=== PATIENT | male | born 1970 ===

== ENCOUNTER → 2017-03-02 | Day surgery (SDC) | payer OTHER ==
[~2017-03-02] MED LIST: BUPIVACAINE/EPINEPHRINE 0.25% 50 ML VIAL ONE; KETOROLAC TROMETHAMINE 30 MG/ML (IVP) VIAL IV PUSH ONE; LACTATED RINGER'S 1000 ML INJ 1,000 ML ONE; MEPERIDINE HCL 25 MG/ML VIAL ONE; MIDAZOLAM HCL 2 MG/2 ML VIAL ONE; ONDANSETRON HCL 4 MG/2 ML VIAL IV PUSH ONE; PROPOFOL 200 MG/20 ML AMP IV ONE; ROCURONIUM INJ 50 MG/5 ML VIAL ONE; SODIUM CHLOR 0.9% 250 ML BAG IV ONE; VANCOMYCIN HCL 1000 MG VIAL ONE
--- NOTE | 2017-03-02 10:06 | TN ---
cc: DARYL CALIXTO M.D. DATE OF SURGERY: 03/02/2017 PREOPERATIVE DIAGNOSIS Bilateral inguinal hernia, umbilical hernia, incarcerated. POSTOPERATIVE DIAGNOSIS Bilateral inguinal hernia, umbilical hernia, incarcerated. PROCEDURE Laparoscopic repair bilateral inguinal hernia with mesh. Open repair incarcerated umbilical hernia. SURGEON Dr. Daryl Calixto. FUR MACHINE OPERATOR Janae Salazar, AIR [employer]SH[employer] ANESTHESIA General. INDICATIONS A pleasant 46-year-old gentleman who was seen in consultation by Dr. Tineo for evaluation of umbilical and right inguinal hernias. The patient has noted the umbilical hernia for about a year. He had a bulge and abnormal feeling in the right groin. Physical exam demonstrated bilateral inguinal hernias and incarcerated umbilical hernia. Plans were made for operative repair. INTRAOPERATIVE FINDINGS Incarcerated preperitoneal fatty tissue through a less than 2 cm umbilical hernia defect. 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 Estimated blood loss less than 5 mL. This procedure was assisted by my AIR MARSHAL. The skill set of an AIR MARSHAL was medically necessary to provide excellent visualization and efficiency in the safe completion of the operation. The rn medical surgical was at the back table, providing appropriate instrumentation while the nurse practitioner was directly assisting me through the entirety of the surgery. DESCRIPTION OF PROCEDURE IN DETAIL The patient was identified as Cyril Linares, taken to the operating room and placed in the supine position. Sequential compression devices were placed on bilateral lower extremities. Following induction of adequate general anesthesia the patient's lower abdomen was prepped and draped in the usual sterile fashion with Betadine. A time-out procedure was performed. Following completion of time-out procedure to everyone's satisfaction within the room, 0.25% Marcaine with epinephrine was placed in the infraumbilical and periumbilical positions. Infraumbilical small transverse incision was carried out with a scalpel and the umbilical skin was lifted off of incarcerated herniated preperitoneal fat. The fat was amputated and suture ligated at its base with 2-0 Vicryl suture ligature and the anterior fascia on the left side of the rectus was exposed. It was incised in vertical fashion allowing for development of preperitoneal plane with surgeon's finger directed towards the pubic symphysis. With the patient in slight Trendelenburg position the preperitoneal dissecting balloon was placed in preperitoneal space and under direct laparoscopic view the balloon was inflated to a total of 39 pumps. This allowed for identification of pubic symphysis and bilateral Derek's ligaments and inferior epigastric vessels. Balloon was desufflated, removed and the structural balloon trocar was placed in preperitoneal space, its balloon inflated with C02 insufflation until a level of 11 mmHg ensued. Two infraumbilical midline 5 mm trocars were then placed in preperitoneal space under direct laparoscopic view after incision of skin with a scalpel. Attention was turned to the right side. Derek's ligament and the inferior epigastric vessels were identified. Blunt dissection lateral and posterior to the spermatic cord was performed. A large spermatic cord lipoma made itself immediately apparent on the anterior lateral surface of the spermatic cord. It was reduced from the inguinal canal with blunt graspers into the preperitoneal space. Anteromedially adherent peritoneum was reduced into the base of the spermatic cord. In doing so a small defect was created which was closed with 0-PDS Endoloop. There was no evidence of direct or femoral hernia. A 4 x 6 inch piece of atrium ProLite mesh was cut with an anterolateral slit placed around the spermatic cord and tacked in position with the capture device. Two tacks were placed along the anterior to approximate the anterolateral slit lateral to the inferior epigastric vessels. A single tack was placed in the inferior lateral Derek's ligament. A 2 x 6 inch piece of the mesh was then placed across the anterolateral slit and held in position, placing a tack superolaterally and inferior medially. Additional tack was placed superior medially. Photographs were taken of the completed repair. Attention was turned to the right side. Similar blunt dissection ensued and almost identical findings were identified. A large spermatic cord lipoma was reduced manually with blunt graspers from the inguinal canal into the preperitoneal space. Adherent peritoneum was reduced to the base of spermatic cord, this time without creating a defect. A 4 x 6 inch piece of atrium ProLite mesh was cut and the anterolateral slit placed around the spermatic cord and tacked in position with a capture device as was done on the left. 2 x 6 inch piece was placed across the anterolateral slit and tacked, placing a tack superior lateral and inferior medial and additional tack superior medial. Photographs were taken of the completed repairs. Care was taken to avoid tack placement inferolaterally to avoid cutaneous nerve injury. Preperitoneal space was filled with remaining local anesthetic. Trocars were removed under direct visualization. There was no evidence of bleeding from trocar sites. Preperitoneal space was desufflated through the infraumbilical port was then removed. The infraumbilical anterior rectus fascial incision was closed with running 2-0 Vicryl suture. The umbilical hernia defect was approximated with interrupted inverted 0-Prolene sutures. The umbilicus was reformed with interrupted 2-0 Vicryl sutures. Skin incision were approximated with 4-0 Monocryl subcuticular sutures. Dressings were applied, Mastisol, half-inch brown Steri-Strips. Gauze and Tegaderm were placed over the umbilicus. The patient tolerated the procedure without apparent complication. Sponge, needle and instrument counts were correct at the end of the case. MD SAMRA Kaiser/SHIRA /9:44 AM /9:53 AM SALTY
== END | disposition home or self-care (01) ==
LOC: ESDC 06:52
PROVIDERS: ATTEND Surgery Trauma Surgery
DX: K40.20 Bilateral inguinal hernia, without obstruction or gangrene, not specified as recurrent (principal); K42.0 Umbilical hernia with obstruction, without gangrene
CPT/HCPCS: 00750; 00840; 49587; 49650; C1727; C1781; J1885; J2175; J2250; J2405; J3010; J3370; J7050; J7120